=== PATIENT | female | born 1940 | race Caucasian/White ===

== ENCOUNTER 2021-12-18 09:45 | Inpatient (IN) | payer MEDICARE ==
[~2021-12-18] VITALS: Ht 167.6 cm; Wt 68.0 kg
[2021-12-18] MEDS ORDERED: ONDANSETRON HCL INJ 2MG/ML 2ML 2 MG/ML VIAL IV STA (10:06)
[2021-12-18] MEDS ORDERED: SODIUM CHLORIDE 0.9% 1000ML 1,000 ML IV STA (10:06)
[2021-12-18 10:13] LABS: BASOPHILS # (AUTO) 0.1 (0.0-0.1); BASOPHILS % 0.4 % (0.0-1.0); HEMATOCRIT 47.6 % (34.2-44.1); HEMOGLOBIN 15.3 g/dL (12.0-16.0); LYMPHOCYTES % 6.6 % (18.0-39.1); MEAN CORPUSCULAR HEMOGLOBIN 26.4 pg (28-32); MEAN CORPUSCULAR HGB CONC 32.1 g/dL (31-35); MEAN CORPUSCULAR VOLUME 82.2 fL (81-99); MONOCYTES # (AUTO) 1.4 (0.2-0.8); MONOCYTES % 9.1 % (4.4-11.3); NEUTROPHILS # (AUTO) 12.7 (2.1-6.9); NEUTROPHILS % 83.5 % (38.7-80.0); PLATELET COUNT 593 x10e3/uL (140-360); RED BLOOD COUNT 5.79 x10e6/uL (3.6-5.1); RED CELL DISTRIBUTION WIDTH 20.8 % (11.7-14.4)
[2021-12-18] MEDS ORDERED: ONDANSETRON HCL INJ 2MG/ML 2ML 2 MG/ML VIAL IV PRN (10:30)
[2021-12-18] MEDS ORDERED: TIZANIDINE HCL4 M1 PO (10:33)
[2021-12-18] MEDS ORDERED: SUCRALFATE1 GM PO (10:33)
[2021-12-18] MEDS ORDERED: FUROSEMIDE80 MG (10:33)
[2021-12-18] MEDS ORDERED: JANTOVEN5 MG PO (10:33)
[2021-12-18] MEDS ORDERED: METFORMIN HCL500 MG PO (10:33)
[2021-12-18] MEDS ORDERED: SERTRALINE HCL50 MG PO (10:33)
[2021-12-18] MEDS ORDERED: METOPROLOL TART50 MG PO (10:33)
[2021-12-18] MEDS ORDERED: TRAZODONE HCL150 MG (10:33)
[2021-12-18] MEDS ORDERED: ENTRESTO 24 MG1 EACH (10:33)
[2021-12-18] MEDS ORDERED: JANTOVEN6 MG PO (10:33)
[2021-12-18 10:47] LABS: ALBUMIN 3.4 g/dL (3.5-5.0); ALBUMIN/GLOBULIN RATIO 0.6 (0.8-2.0); ANION GAP 23.5 mmol/L (8-16); CALCIUM 9.4 mg/dL (8.4-10.2); CREATININE, SERUM 1.19 mg/dL (0.57-1.11); POTASSIUM 3.5 mmol/L (3.5-5.1)
[2021-12-18 10:53] LABS: CREATINE KINASE MB 1.1 ng/mL (0-5.0)
[2021-12-18 10:56] LABS: INR 4.04
[2021-12-18 10:57] LABS: PARTIAL THROMBOPLASTIN TIME 46.1 seconds (23.8-35.5)
[2021-12-18] MEDS ORDERED: IOPAMIDOL 370 MG/ML 100 ML INFUS..BTL INJ ONE (11:17)
[2021-12-18] MEDS: Morphine 2mg Syringe 2 MG/ML SYR IV PRN ×2 (11:47→17:43)
[2021-12-18] MEDS: SODIUM CHLORIDE 0.9% 1000ML 1,000 ML IV SCH ×2 (13:13→18:35)
[2021-12-18 15:30] VITALS: BP 150/66
[2021-12-18 16:31] VITALS: BP 135/75
[2021-12-18 20:00] VITALS: BP 134/49
[2021-12-19] VITALS (8 sets, daily range): BP systolic 108–155; BP diastolic 50–61
[2021-12-19] MEDS: SODIUM CHLORIDE 0.9% 1000ML 1,000 ML IV SCH ×3 (02:30→17:30)
[2021-12-19] MEDS: METOCLOPRAMIDE HCL 10 MG/2ML VIAL IV SCH ×3 (05:37→18:00)
[2021-12-19] MEDS ORDERED: PHYTONADIONE 10 MG/ML AMP SC ONE (10:30)
[2021-12-19] MEDS ORDERED: LIDOCAINE HCL 2% LOCAL INJ 5 ML SDV VIAL INJ ONE (13:05)
[2021-12-19] MEDS ORDERED: POVIDONE IODINE 0.05% 0.05 % ML PO ONE (13:05)
[2021-12-19] MEDS ORDERED: SUCCINYLCHOLINE CHLORIDE 20 MG/ML 10ML VIAL ONE (13:05)
[2021-12-19] MEDS ORDERED: PROPOFOL IV EMULSION 10 MG/ML 20 ML VIAL ONE (13:05)
[2021-12-19] MEDS ORDERED: FENTANYL CITRATE/PF 100MCG/2 ML INJ ONE (13:19)
[2021-12-19] MEDS ORDERED: SODIUM CHLORIDE 0.9% 250ML 250 ML ONE (15:37)
[2021-12-20] VITALS (8 sets, daily range): BP systolic 126–164; BP diastolic 46–69
[2021-12-20] MEDS: METOCLOPRAMIDE HCL 10 MG/2ML VIAL IV SCH ×5 (01:24→23:51)
[2021-12-20] MEDS: SODIUM CHLORIDE 0.9% 1000ML 1,000 ML IV SCH ×3 (01:25→18:12)
[2021-12-20 06:23] LABS: BASOPHILS # (AUTO) 0.1 (0.0-0.1); BASOPHILS % 0.8 % (0.0-1.0); EOSINOPHILS # (AUTO) 0.3 (0.0-0.4); EOSINOPHILS % 3.1 % (0.0-6.0); HEMATOCRIT 35.6 % (34.2-44.1); LYMPHOCYTES # (AUTO) 1.1 (1.0-3.2); LYMPHOCYTES % 13.6 % (18.0-39.1); MEAN CORPUSCULAR HEMOGLOBIN 26.4 pg (28-32); MEAN CORPUSCULAR HGB CONC 30.9 g/dL (31-35); MEAN CORPUSCULAR VOLUME 85.6 fL (81-99); MONOCYTES # (AUTO) 0.9 (0.2-0.8); MONOCYTES % 11.3 % (4.4-11.3); NEUTROPHILS # (AUTO) 5.7 (2.1-6.9); NEUTROPHILS % 70.7 % (38.7-80.0); PLATELET COUNT 300 x10e3/uL (140-360); RED BLOOD COUNT 4.16 x10e6/uL (3.6-5.1); RED CELL DISTRIBUTION WIDTH 19.8 % (11.7-14.4)
[2021-12-20 06:58] LABS: ALBUMIN 2.8 g/dL (3.5-5.0); ALBUMIN/GLOBULIN RATIO 0.8 (0.8-2.0); ANION GAP 13.7 mmol/L (8-16); CALCIUM 7.6 mg/dL (8.4-10.2); CREATININE, SERUM 0.76 mg/dL (0.57-1.11); MAGNESIUM 1.7 MG/DL (1.3-2.1)
[2021-12-20 07:26] LABS: POTASSIUM 2.7 mmol/L (3.5-5.1)
[2021-12-20 08:18] LABS: INR 2.38; PROTHROMBIN TIME 27.8 seconds (11.9-14.5)
[2021-12-20] MEDS ORDERED: POTASSIUM CHLORIDE 20MEQ/100ML 200 ML IV ONE (09:00)
[2021-12-20] MEDS: Morphine 2mg Syringe 2 MG/ML SYR IV PRN (13:30)
[2021-12-20] MEDS ORDERED: TRAZODONE HCL 50 MG TAB ONE (23:58)
[2021-12-21] VITALS (7 sets, daily range): BP systolic 146–166; BP diastolic 61–81
[2021-12-21] MEDS ORDERED: TRAZODONE HCL 50 MG TAB PO ONE (00:30)
[2021-12-21] MEDS ORDERED: SERTRALINE HCL 50 MG TAB PO ONE (00:30)
[2021-12-21] MEDS ORDERED: METOPROLOL TARTRATE 50 MG TAB PO ONE (00:30)
[2021-12-21] MEDS: SODIUM CHLORIDE 0.9% 1000ML 1,000 ML IV SCH ×3 (02:11→17:48)
[2021-12-21] MEDS: METOCLOPRAMIDE HCL 10 MG/2ML VIAL IV SCH ×4 (05:41→23:11)
[2021-12-21] MEDS: SUCRALFATE 1 GM TAB PO SCH ×3 (07:30→16:02)
[2021-12-21] MEDS: METFORMIN HCL 500 MG TAB PO SCH ×2 (08:00→16:02)
[2021-12-21 08:02] LABS: ALBUMIN 2.5 g/dL (3.5-5.0); ALBUMIN/GLOBULIN RATIO 0.7 (0.8-2.0); ANION GAP 13.3 mmol/L (8-16); CALCIUM 7.7 mg/dL (8.4-10.2); CREATININE, SERUM 0.74 mg/dL (0.57-1.11); POTASSIUM 3.3 mmol/L (3.5-5.1)
[2021-12-21 08:13] LABS: BASOPHILS % 0.6 % (0.0-1.0); EOSINOPHILS # (AUTO) 0.2 (0.0-0.4); EOSINOPHILS % 3.3 % (0.0-6.0); HEMATOCRIT 35.6 % (34.2-44.1); HEMOGLOBIN 11.1 g/dL (12.0-16.0); LYMPHOCYTES # (AUTO) 0.9 (1.0-3.2); LYMPHOCYTES % 12.9 % (18.0-39.1); MEAN CORPUSCULAR HEMOGLOBIN 26.5 pg (28-32); MEAN CORPUSCULAR HGB CONC 31.2 g/dL (31-35); MONOCYTES # (AUTO) 0.9 (0.2-0.8); MONOCYTES % 11.7 % (4.4-11.3); NEUTROPHILS # (AUTO) 5.2 (2.1-6.9); NEUTROPHILS % 71.1 % (38.7-80.0); PLATELET COUNT 316 x10e3/uL (140-360); RED BLOOD COUNT 4.19 x10e6/uL (3.6-5.1); RED CELL DISTRIBUTION WIDTH 19.9 % (11.7-14.4)
[2021-12-21] MEDS: FUROSEMIDE 40 MG TAB PO SCH (09:00)
[2021-12-21] MEDS ORDERED: VALSARTAN/SACUBITRIL 24MG/26MG 1 EA TAB PO ONE (09:00)
[2021-12-21] MEDS: METOPROLOL TARTRATE 50 MG TAB PO SCH ×3 (09:00→20:25)
[2021-12-21] MEDS ORDERED: POTASSIUM CHLORIDE 20 MEQ TAB CR PO ONE (10:00)
[2021-12-21] MEDS ORDERED: WARFARIN SOD 3 MG TAB PO SCH (17:00)
[2021-12-21] MEDS ORDERED: SERTRALINE HCL 50 MG TAB PO SCH (21:00)
[2021-12-21] MEDS ORDERED: TIZANIDINE HCL 4 MG TAB PO SCH (21:00)
[2021-12-21] MEDS ORDERED: TRAZODONE HCL 50 MG TAB PO SCH (21:00)
[2021-12-22] VITALS: BP 129/63
[2021-12-22 04:00] VITALS: BP 126/51
[2021-12-22] MEDS: METOCLOPRAMIDE HCL 10 MG/2ML VIAL IV SCH (05:31)
[2021-12-22] MEDS: SODIUM CHLORIDE 0.9% 1000ML 1,000 ML IV SCH (05:35)
[2021-12-22 06:59] LABS: BASOPHILS % 0.4 % (0.0-1.0); EOSINOPHILS # (AUTO) 0.3 (0.0-0.4); EOSINOPHILS % 3.6 % (0.0-6.0); HEMATOCRIT 32.4 % (34.2-44.1); HEMOGLOBIN 10.1 g/dL (12.0-16.0); LYMPHOCYTES # (AUTO) 0.8 (1.0-3.2); MEAN CORPUSCULAR HEMOGLOBIN 26.6 pg (28-32); MEAN CORPUSCULAR HGB CONC 31.2 g/dL (31-35); MEAN CORPUSCULAR VOLUME 85.3 fL (81-99); MONOCYTES # (AUTO) 0.7 (0.2-0.8); MONOCYTES % 9.7 % (4.4-11.3); NEUTROPHILS # (AUTO) 5.2 (2.1-6.9); NEUTROPHILS % 74.9 % (38.7-80.0); PLATELET COUNT 240 x10e3/uL (140-360); RED CELL DISTRIBUTION WIDTH 20.2 % (11.7-14.4)
[2021-12-22] MEDS: SUCRALFATE 1 GM TAB PO SCH (07:30)
[2021-12-22 07:41] LABS: ANION GAP 10.4 mmol/L (8-16); CALCIUM 7.1 mg/dL (8.4-10.2); CREATININE, SERUM 0.64 mg/dL (0.57-1.11); POTASSIUM 3.4 mmol/L (3.5-5.1)
[2021-12-22 07:47] VITALS: BP 126/51
[2021-12-22] MEDS: METFORMIN HCL 500 MG TAB PO SCH (08:00)
[2021-12-22] MEDS: FUROSEMIDE 40 MG TAB PO SCH (08:55)
[2021-12-22] MEDS: METOPROLOL TARTRATE 50 MG TAB PO SCH (08:55)
[2021-12-22 08:58] VITALS: BP 120/55
[2021-12-22] MEDS ORDERED: FLUCONAZOLE 200 MG/100 ML 100 ML IV SCH (09:00)
[2021-12-25] MEDS ORDERED: WARFARIN SOD 5 MG TAB PO SCH (17:00)
== END 2021-12-22 10:24 | disposition home or self-care (01) | DRG 381 ==
LOC: ER 10:13 → ERHOLD 10:17 → MED/SURG2 15:22
PROVIDERS: ADMIT Internal Medicine; ATTEND Internal Medicine
PROC: 0DB68ZX Excision of Stomach, Via Natural or Artificial Opening Endoscopic, Diagnostic (ICD-10-PCS; 2021-12-19)
PROC: 0DB78ZX Excision of Stomach, Pylorus, Via Natural or Artificial Opening Endoscopic, Diagnostic (ICD-10-PCS; 2021-12-19)
PROC: 02HV33Z Insertion of Infusion Device into Superior Vena Cava, Percutaneous Approach (ICD-10-PCS; 2021-12-19)
PROC: 30243N1 Transfusion of Nonautologous Red Blood Cells into Central Vein, Percutaneous Approach (ICD-10-PCS; 2021-12-19)
PROC: 0DD58ZX Extraction of Esophagus, Via Natural or Artificial Opening Endoscopic, Diagnostic (ICD-10-PCS; principal; 2021-12-19 18:40)
DX: K31.1 Adult hypertrophic pyloric stenosis (principal); I13.0 Hypertensive heart and chronic kidney disease with heart failure and stage 1 through stage 4 chronic kidney disease, or unspecified chronic kidney disease; B37.81 Candidal esophagitis; E11.22 Type 2 diabetes mellitus with diabetic chronic kidney disease; N18.30 Chronic kidney disease, stage 3 unspecified; I48.91 Unspecified atrial fibrillation; K29.70 Gastritis, unspecified, without bleeding; T18.128A Food in esophagus causing other injury, initial encounter; T45.515A Adverse effect of anticoagulants, initial encounter; I50.9 Heart failure, unspecified; F41.9 Anxiety disorder, unspecified; K21.9 Gastro-esophageal reflux disease without esophagitis; D64.9 Anemia, unspecified; Z95.810 Presence of automatic (implantable) cardiac defibrillator; Z90.49 Acquired absence of other specified parts of digestive tract; Z88.1 Allergy status to other antibiotic agents; Z98.84 Bariatric surgery status; Z79.84 Long term (current) use of oral hypoglycemic drugs
CPT/HCPCS: 36415; 36569; 43239; 71045; 74177; 80048; 80053; 82550; 82553; 82948; 83690; 83735; 83880; 84484; 85025; 85610; 85730; 86850; 86870; 86880; 86900; 86905; 88112; 88300; 88305; 88312; 88342; 93005; 99001; 99284; J0330; J1450; J2001; J2270; J2405; J2765; J3010; J3430; J3480; J7030; J7050; P9017; Q9967

== ENCOUNTER 2022-07-29 10:12 | Inpatient (IN) | payer MEDICARE ==
[~2022-07-29] VITALS: Ht 167.6 cm; Wt 64.6 kg
[~2022-07-29 10:12] MED LIST: ENTRESTO 24 MG1 EACH; FUROSEMIDE80 MG; JANTOVEN5 MG PO; JANTOVEN6 MG PO; METFORMIN HCL500 MG PO; METOPROLOL TART50 MG PO; SERTRALINE HCL50 MG PO; SUCRALFATE1 GM PO; TIZANIDINE HCL4 M1 PO; TRAZODONE HCL150 MG
[2022-07-29 11:32] LABS: BASOPHILS # (AUTO) 0.1 (0.0-0.1); BASOPHILS % 0.2 % (0.0-1.0); EOSINOPHILS # (AUTO) 0.1 (0.0-0.4); EOSINOPHILS % 0.2 % (0.0-6.0); HEMATOCRIT 46.4 % (34.2-44.1); HEMOGLOBIN 14.3 g/dL (12.0-16.0); LYMPHOCYTES # (AUTO) 0.6 (1.0-3.2); LYMPHOCYTES % 2.8 % (18.0-39.1); MEAN CORPUSCULAR HEMOGLOBIN 27.7 pg (28-32); MEAN CORPUSCULAR HGB CONC 30.8 g/dL (31-35); MEAN CORPUSCULAR VOLUME 89.7 fL (81-99); MONOCYTES # (AUTO) 0.6 (0.2-0.8); MONOCYTES % 3.1 % (4.4-11.3); NEUTROPHILS # (AUTO) 19.1 (2.1-6.9); NEUTROPHILS % 93.2 % (38.7-80.0); PLATELET COUNT 489 x10e3/uL (140-360); RED BLOOD COUNT 5.17 x10e6/uL (3.6-5.1); RED CELL DISTRIBUTION WIDTH 18.5 % (11.7-14.4)
[2022-07-29 11:50] LABS: ALBUMIN 3.1 g/dL (3.5-5.0); ALBUMIN/GLOBULIN RATIO 0.6 (0.8-2.0); ANION GAP 24.2 mmol/L (8-16); CREATININE, SERUM 1.6 mg/dL (0.57-1.11); POTASSIUM 4.2 mmol/L (3.5-5.1)
[2022-07-29] MEDS ORDERED: SODIUM CHLORIDE 0.9% 500ML 500 ML IV ONE ×2 (12:00→14:15)
[2022-07-29 12:01] LABS: CREATINE KINASE MB 1.8 ng/mL (0-5.0)
[2022-07-29 12:42] LABS: MONOCYTES % (MANUAL) 1 % (3.4-9.0); NEUTROPHILS % (MANUAL) 99 % (40-74); PLATELET ESTIMATE ADEQUATE; PLATELET MORPHOLOGY COMMENT NORMAL; RBC MORPHOLOGY COMMENT NORMAL
[2022-07-29 12:49] LABS: INR 3.05; PROTHROMBIN TIME 31.6 seconds (11.9-14.5)
[2022-07-29 12:50] LABS: PARTIAL THROMBOPLASTIN TIME 46.7 seconds (23.8-35.5)
[2022-07-29] MEDS ORDERED: DEXTROSE 50% SYRINGE 50 ML IV PRN (15:00)
[2022-07-29] MEDS ORDERED: LINEZOLID 600 MG/D5W 300ML 300 ML IV ONE (15:30)
[2022-07-29 16:17] LABS: CLARITY,URINE CLEAR (CLEAR); COLOR,URINE YELLOW (YELLOW)
[2022-07-29 16:18] LABS: BACTERIA,URINE MODERATE /HPF; EPITHELIAL CELLS,URINE MANY /LPF; KETONES,URINE NEGATIVE (NEGATIVE); LEUKOCYTE ESTERASE ,URINE NEGATIVE (NEGATIVE); NITRITE,URINE NEGATIVE (NEGATIVE); PROTEIN,URINE DIPSTICK NEGATIVE (NEGATIVE); RBC,URINE 0-5 /HPF (0-5); URINE UROBILINOGEN 0.2 mg/dL (0.2 - 1); WBC,URINE (MAN) 0-5 /HPF (0-5)
[2022-07-29] MEDS: INSULIN LISPRO 100 UNIT/1 ML 3ML VIAL SQ SCH ×2 (16:30→21:00)
[2022-07-29 16:50] VITALS: BP 135/71
[2022-07-29 18:25] VITALS: BP 128/81
[2022-07-29] MEDS ORDERED: SERTRALINE HCL50 MG PO (18:39)
[2022-07-29] MEDS ORDERED: TRAMADOL HCL 50 MG TAB PO PRN (19:00)
[2022-07-29 20:00] VITALS: BP 143/77
[2022-07-29 20:10] LABS: CREATINE KINASE MB 4.9 ng/mL (0-5.0)
[2022-07-29 21:00] VITALS: BP 143/77
[2022-07-29] MEDS ORDERED: SODIUM CHLORIDE 0.9% 250ML 250 ML ONE (23:06)
[2022-07-30] VITALS: BP 152/83
[2022-07-30 02:02] LABS: CREATINE KINASE MB 4.8 ng/mL (0-5.0)
[2022-07-30 04:59] LABS: BASOPHILS # (AUTO) 0.2 (0.0-0.1); BASOPHILS % 0.8 % (0.0-1.0); EOSINOPHILS % 0.1 % (0.0-6.0); HEMATOCRIT 39.3 % (34.2-44.1); HEMOGLOBIN 13.4 g/dL (12.0-16.0); LYMPHOCYTES # (AUTO) 1.7 (1.0-3.2); LYMPHOCYTES % 9.6 % (18.0-39.1); MEAN CORPUSCULAR HEMOGLOBIN 27.9 pg (28-32); MEAN CORPUSCULAR HGB CONC 34.1 g/dL (31-35); MEAN CORPUSCULAR VOLUME 81.9 fL (81-99); MONOCYTES # (AUTO) 1.4 (0.2-0.8); MONOCYTES % 8.1 % (4.4-11.3); NEUTROPHILS # (AUTO) 14.3 (2.1-6.9); NEUTROPHILS % 80.7 % (38.7-80.0); PLATELET COUNT 429 x10e3/uL (140-360); RED CELL DISTRIBUTION WIDTH 18.1 % (11.7-14.4)
[2022-07-30 05:20] LABS: ALBUMIN 2.8 g/dL (3.5-5.0); ALBUMIN/GLOBULIN RATIO 0.6 (0.8-2.0); ANION GAP 19.1 mmol/L (8-16); CALCIUM 8.6 mg/dL (8.4-10.2); CREATININE, SERUM 1.08 mg/dL (0.57-1.11); POTASSIUM 3.1 mmol/L (3.5-5.1)
[2022-07-30 05:53] LABS: CREATINE KINASE MB 4.2 ng/mL (0-5.0)
[2022-07-30] MEDS: HYDROCODONE/APAP 10MG-325MG TAB PO PRN ×2 (06:37→21:15)
[2022-07-30 06:48] VITALS: BP 157/70
[2022-07-30] MEDS: INSULIN LISPRO 100 UNIT/1 ML 3ML VIAL SQ SCH ×4 (07:30→21:00)
[2022-07-30] MEDS: VALSARTAN/SACUBITRIL 24MG/26MG 1 EA TAB PO SCH ×2 (08:18→16:44)
[2022-07-30] MEDS: METOPROLOL TARTRATE 50 MG TAB PO SCH ×3 (08:18→21:16)
[2022-07-30 08:23] VITALS: BP 132/62
[2022-07-30 08:52] VITALS: BP 132/62
[2022-07-30 16:55] VITALS: BP 129/85
[2022-07-30 20:00] VITALS: BP 127/64
[2022-07-30] MEDS: SERTRALINE HCL 50 MG TAB PO SCH (21:00)
[2022-07-31] VITALS (7 sets, daily range): BP systolic 120–149; BP diastolic 54–85
[2022-07-31] MEDS: ONDANSETRON HCL INJ 2MG/ML 2ML 2 MG/ML VIAL IV PRN (04:00)
[2022-07-31 04:55] LABS: BASOPHILS # (AUTO) 0.1 (0.0-0.1); BASOPHILS % 0.6 % (0.0-1.0); EOSINOPHILS # (AUTO) 0.1 (0.0-0.4); EOSINOPHILS % 0.8 % (0.0-6.0); HEMATOCRIT 38.6 % (34.2-44.1); HEMOGLOBIN 13.1 g/dL (12.0-16.0); LYMPHOCYTES # (AUTO) 0.6 (1.0-3.2); LYMPHOCYTES % 4.4 % (18.0-39.1); MEAN CORPUSCULAR HEMOGLOBIN 28.1 pg (28-32); MEAN CORPUSCULAR HGB CONC 33.9 g/dL (31-35); MEAN CORPUSCULAR VOLUME 82.7 fL (81-99); MONOCYTES # (AUTO) 0.9 (0.2-0.8); MONOCYTES % 7.2 % (4.4-11.3); NEUTROPHILS # (AUTO) 10.9 (2.1-6.9); NEUTROPHILS % 86.4 % (38.7-80.0); PLATELET COUNT 383 x10e3/uL (140-360); RED BLOOD COUNT 4.67 x10e6/uL (3.6-5.1); RED CELL DISTRIBUTION WIDTH 18.6 % (11.7-14.4)
[2022-07-31 05:15] LABS: ALBUMIN 2.8 g/dL (3.5-5.0); ALBUMIN/GLOBULIN RATIO 0.6 (0.8-2.0); ANION GAP 17.4 mmol/L (8-16); CALCIUM 8.5 mg/dL (8.4-10.2); CREATININE, SERUM 1.18 mg/dL (0.57-1.11); POTASSIUM 3.4 mmol/L (3.5-5.1)
[2022-07-31] MEDS: INSULIN LISPRO 100 UNIT/1 ML 3ML VIAL SQ SCH ×4 (07:30→21:00)
[2022-07-31] MEDS: METOPROLOL TARTRATE 50 MG TAB PO SCH ×3 (09:11→20:59)
[2022-07-31] MEDS: BALSAM PERU/CASTOR OIL 60 GM OINT...G. TP SCH (09:11)
[2022-07-31] MEDS: VALSARTAN/SACUBITRIL 24MG/26MG 1 EA TAB PO SCH ×2 (09:12→16:07)
[2022-07-31] MEDS: SUCRALFATE 1 GM TAB PO PRN (16:06)
[2022-07-31] MEDS: HYDROCODONE/APAP 10MG-325MG TAB PO PRN (16:06)
[2022-07-31] MEDS: SERTRALINE HCL 50 MG TAB PO SCH (20:59)
[2022-08-01] VITALS (8 sets, daily range): BP systolic 130–148; BP diastolic 59–94
[2022-08-01] MEDS: SUCRALFATE 1 GM TAB PO PRN ×2 (00:01→07:41)
[2022-08-01] MEDS ORDERED: POTASSIUM CHLORIDE 10MEQ EA PO ONE (04:15)
[2022-08-01 05:32] LABS: BASOPHILS % 0.6 % (0.0-1.0); EOSINOPHILS # (AUTO) 0.2 (0.0-0.4); EOSINOPHILS % 2.5 % (0.0-6.0); HEMATOCRIT 41.3 % (34.2-44.1); HEMOGLOBIN 13.6 g/dL (12.0-16.0); LYMPHOCYTES # (AUTO) 0.6 (1.0-3.2); LYMPHOCYTES % 8.9 % (18.0-39.1); MEAN CORPUSCULAR HEMOGLOBIN 27.8 pg (28-32); MEAN CORPUSCULAR HGB CONC 32.9 g/dL (31-35); MEAN CORPUSCULAR VOLUME 84.3 fL (81-99); MONOCYTES # (AUTO) 0.6 (0.2-0.8); MONOCYTES % 9.7 % (4.4-11.3); PLATELET COUNT 419 x10e3/uL (140-360); RED CELL DISTRIBUTION WIDTH 19.5 % (11.7-14.4)
[2022-08-01 05:51] LABS: ALBUMIN 2.6 g/dL (3.5-5.0); ALBUMIN/GLOBULIN RATIO 0.6 (0.8-2.0); ANION GAP 15.7 mmol/L (8-16); CREATININE, SERUM 1.05 mg/dL (0.57-1.11); POTASSIUM 3.7 mmol/L (3.5-5.1)
[2022-08-01 06:40] LABS: ANISOCYTOSIS MODERATE; HYPOCHROMASIA SLIGHT; PLATELET ESTIMATE ADEQUATE; PLATELET MORPHOLOGY COMMENT FEW LARGE; POLYCHROMASIA FEW; RBC MORPHOLOGY COMMENT ABNORMAL
[2022-08-01] MEDS: FUROSEMIDE INJ 10 MG/ML 4 ML VIAL IV SCH (07:42)
[2022-08-01] MEDS: ASPIRIN 81 MG ENTERIC COATED PO SCH (07:42)
[2022-08-01] MEDS: VALSARTAN/SACUBITRIL 24MG/26MG 1 EA TAB PO SCH ×2 (07:43→17:16)
[2022-08-01] MEDS: HYDROCODONE/APAP 10MG-325MG TAB PO PRN ×3 (07:43→22:22)
[2022-08-01] MEDS ORDERED: SUCRALFATE 1 GM TAB PO PRN (08:15)
[2022-08-01] MEDS: INSULIN LISPRO 100 UNIT/1 ML 3ML VIAL SQ SCH ×4 (08:23→21:00)
[2022-08-01] MEDS: METOPROLOL TARTRATE 50 MG TAB PO SCH ×3 (09:27→22:22)
[2022-08-01] MEDS: BALSAM PERU/CASTOR OIL 60 GM OINT...G. TP SCH (09:28)
[2022-08-01] MEDS: ONDANSETRON HCL INJ 2MG/ML 2ML 2 MG/ML VIAL IV PRN (22:21)
[2022-08-01] MEDS: SERTRALINE HCL 50 MG TAB PO SCH (22:21)
[2022-08-02] VITALS: BP 152/94
[2022-08-02] MEDS: INSULIN LISPRO 100 UNIT/1 ML 3ML VIAL SQ SCH ×4 (07:30→21:00)
[2022-08-02 08:20] VITALS: BP 128/69
[2022-08-02 08:50] VITALS: BP 128/69
[2022-08-02] MEDS: FUROSEMIDE INJ 10 MG/ML 4 ML VIAL IV SCH (09:54)
[2022-08-02] MEDS: BALSAM PERU/CASTOR OIL 60 GM OINT...G. TP SCH (09:55)
[2022-08-02] MEDS: METOPROLOL TARTRATE 50 MG TAB PO SCH ×3 (09:55→21:11)
[2022-08-02] MEDS: ASPIRIN 81 MG ENTERIC COATED PO SCH (09:55)
[2022-08-02] MEDS: VALSARTAN/SACUBITRIL 24MG/26MG 1 EA TAB PO SCH ×2 (09:55→17:31)
[2022-08-02 11:30] VITALS: BP 150/61
[2022-08-02 21:00] VITALS: BP 147/61
[2022-08-02] MEDS: SERTRALINE HCL 50 MG TAB PO SCH (21:11)
[2022-08-03] VITALS (8 sets, daily range): BP systolic 122–150; BP diastolic 58–75
[2022-08-03] MEDS: INSULIN LISPRO 100 UNIT/1 ML 3ML VIAL SQ SCH ×4 (07:30→21:10)
[2022-08-03] MEDS: FUROSEMIDE INJ 10 MG/ML 4 ML VIAL IV SCH (09:32)
[2022-08-03] MEDS: METOPROLOL TARTRATE 50 MG TAB PO SCH ×3 (09:33→21:01)
[2022-08-03] MEDS: VALSARTAN/SACUBITRIL 24MG/26MG 1 EA TAB PO SCH ×2 (09:33→16:37)
[2022-08-03] MEDS: ASPIRIN 81 MG ENTERIC COATED PO SCH (09:34)
[2022-08-03] MEDS: BALSAM PERU/CASTOR OIL 60 GM OINT...G. TP SCH (09:42)
[2022-08-03] MEDS: HYDROCODONE/APAP 10MG-325MG TAB PO PRN (13:52)
[2022-08-03] MEDS: SERTRALINE HCL 50 MG TAB PO SCH (21:01)
[2022-08-03] MEDS: ATORVASTATIN 40 MG TAB PO SCH (21:02)
[2022-08-04] MEDS: HYDROCODONE/APAP 10MG-325MG TAB PO PRN (02:15)
[2022-08-04 04:00] VITALS: BP 134/54
[2022-08-04 08:00] VITALS: BP 134/72
[2022-08-04] MEDS: METOPROLOL TARTRATE 50 MG TAB PO SCH ×3 (09:04→21:00)
[2022-08-04] MEDS: FUROSEMIDE INJ 10 MG/ML 4 ML VIAL IV SCH (09:04)
[2022-08-04] MEDS: VALSARTAN/SACUBITRIL 24MG/26MG 1 EA TAB PO SCH ×2 (09:04→16:27)
[2022-08-04] MEDS: BALSAM PERU/CASTOR OIL 60 GM OINT...G. TP SCH (09:05)
[2022-08-04] MEDS: ASPIRIN 81 MG ENTERIC COATED PO SCH (09:05)
[2022-08-04] MEDS: INSULIN LISPRO 100 UNIT/1 ML 3ML VIAL SQ SCH ×4 (09:06→21:00)
[2022-08-04 13:31] VITALS: BP 100/72
[2022-08-04 16:55] VITALS: BP 140/65
[2022-08-04 20:00] VITALS: BP 140/65
[2022-08-04 20:32] VITALS: BP 132/68
[2022-08-04] MEDS: SERTRALINE HCL 50 MG TAB PO SCH (21:12)
[2022-08-04] MEDS: ATORVASTATIN 40 MG TAB PO SCH (21:12)
[2022-08-05] VITALS (8 sets, daily range): BP systolic 126–148; BP diastolic 51–89
[2022-08-05 05:44] LABS: BASOPHILS # (AUTO) 0.1 (0.0-0.1); BASOPHILS % 0.8 % (0.0-1.0); EOSINOPHILS # (AUTO) 0.2 (0.0-0.4); HEMATOCRIT 40.4 % (34.2-44.1); HEMOGLOBIN 13.6 g/dL (12.0-16.0); LYMPHOCYTES # (AUTO) 1.1 (1.0-3.2); LYMPHOCYTES % 13.7 % (18.0-39.1); MEAN CORPUSCULAR HEMOGLOBIN 27.7 pg (28-32); MEAN CORPUSCULAR HGB CONC 33.7 g/dL (31-35); MEAN CORPUSCULAR VOLUME 82.3 fL (81-99); MONOCYTES # (AUTO) 0.9 (0.2-0.8); NEUTROPHILS # (AUTO) 5.4 (2.1-6.9); PLATELET COUNT 400 x10e3/uL (140-360); RED BLOOD COUNT 4.91 x10e6/uL (3.6-5.1); RED CELL DISTRIBUTION WIDTH 19.5 % (11.7-14.4)
[2022-08-05 06:05] LABS: INR 1.17; PROTHROMBIN TIME 15.1 seconds (11.9-14.5)
[2022-08-05 06:10] LABS: ALBUMIN 2.6 g/dL (3.5-5.0); ALBUMIN/GLOBULIN RATIO 0.6 (0.8-2.0); ANION GAP 13.7 mmol/L (8-16); CALCIUM 8.7 mg/dL (8.4-10.2); CREATININE, SERUM 0.75 mg/dL (0.57-1.11); POTASSIUM 3.7 mmol/L (3.5-5.1)
[2022-08-05] MEDS: FUROSEMIDE INJ 10 MG/ML 4 ML VIAL IV SCH (09:38)
[2022-08-05] MEDS: VALSARTAN/SACUBITRIL 24MG/26MG 1 EA TAB PO SCH ×2 (09:39→18:56)
[2022-08-05] MEDS: ASPIRIN 81 MG ENTERIC COATED PO SCH (09:39)
[2022-08-05] MEDS: METOPROLOL TARTRATE 50 MG TAB PO SCH ×3 (09:39→22:15)
[2022-08-05] MEDS: INSULIN LISPRO 100 UNIT/1 ML 3ML VIAL SQ SCH ×4 (09:45→21:00)
[2022-08-05] MEDS: BALSAM PERU/CASTOR OIL 60 GM OINT...G. TP SCH (09:55)
[2022-08-05] MEDS ORDERED: ONDANSETRON HCL 4 MG ORAL DISINTEGRATING TAB PO PRN (11:45)
[2022-08-05] MEDS: ATORVASTATIN 40 MG TAB PO SCH (22:14)
[2022-08-05] MEDS: SERTRALINE HCL 50 MG TAB PO SCH (22:14)
[2022-08-06] VITALS: BP 142/60
[2022-08-06 08:00] VITALS: BP 142/60
[2022-08-06 08:55] VITALS: BP 146/59
[2022-08-06] MEDS: BALSAM PERU/CASTOR OIL 60 GM OINT...G. TP SCH (10:37)
[2022-08-06] MEDS: VALSARTAN/SACUBITRIL 24MG/26MG 1 EA TAB PO SCH (10:37)
[2022-08-06] MEDS: ASPIRIN 81 MG ENTERIC COATED PO SCH (10:38)
[2022-08-06] MEDS: FUROSEMIDE INJ 10 MG/ML 4 ML VIAL IV SCH (10:38)
[2022-08-06] MEDS: METOPROLOL TARTRATE 50 MG TAB PO SCH (10:38)
[2022-08-06] MEDS: INSULIN LISPRO 100 UNIT/1 ML 3ML VIAL SQ SCH ×2 (10:50→11:30)
[2022-08-06 12:00] VITALS: BP 114/90
[2022-08-06] MEDS ORDERED: WARFARIN SOD 5 MG TAB PO SCH (17:00)
[2022-08-06 17:10] VITALS: BP 116/52
[2022-08-07] MEDS ORDERED: WARFARIN SOD 3 MG TAB PO SCH (17:00)
== END 2022-08-06 16:30 | DRG 871 ==
LOC: ER 10:33 → ERHOLD 15:03 → MED/SURG2 16:50
PROVIDERS: ADMIT Internal Medicine; ATTEND Internal Medicine
DX: A41.89 Other specified sepsis (principal); I21.A1 Myocardial infarction type 2; U07.1 COVID-19; I50.23 Acute on chronic systolic (congestive) heart failure; J18.9 Pneumonia, unspecified organism; N17.9 Acute kidney failure, unspecified; E87.1 Hypo-osmolality and hyponatremia; J44.1 Chronic obstructive pulmonary disease with (acute) exacerbation; I48.91 Unspecified atrial fibrillation; E11.9 Type 2 diabetes mellitus without complications; K21.9 Gastro-esophageal reflux disease without esophagitis; E87.6 Hypokalemia; R53.1 Weakness; I11.0 Hypertensive heart disease with heart failure; E78.00 Pure hypercholesterolemia, unspecified; E03.9 Hypothyroidism, unspecified; I25.10 Atherosclerotic heart disease of native coronary artery without angina pectoris; F41.9 Anxiety disorder, unspecified; F32.A Depression, unspecified; M19.90 Unspecified osteoarthritis, unspecified site; Z88.1 Allergy status to other antibiotic agents; Z87.440 Personal history of urinary (tract) infections; Z90.49 Acquired absence of other specified parts of digestive tract; Z90.89 Acquired absence of other organs; Z95.810 Presence of automatic (implantable) cardiac defibrillator; Z96.659 Presence of unspecified artificial knee joint; Z98.84 Bariatric surgery status; Z79.01 Long term (current) use of anticoagulants; Z79.84 Long term (current) use of oral hypoglycemic drugs; Z79.899 Other long term (current) drug therapy; Z66 Do not resuscitate
CPT/HCPCS: 36415; 70450; 71045; 72125; 80053; 81001; 82550; 82553; 82948; 83605; 83735; 83880; 84484; 85025; 85610; 85730; 87040; 87086; 93005; 94799; 99252; 99284; J0696; J1940; J2020; J2405; J7040; J7050